=== PATIENT | male | born 2000 | race Caucasian/White ===

== ENCOUNTER 2023-09-25 10:00 | Outpatient (RCR) | payer OTHER, SELFPAY | END 2023-12-24 13:56 | disposition home or self-care (01) | PROVIDERS: Visit Provider Family Medicine | DX: M25.851 Other specified joint disorders, right hip (principal); M62.81 Muscle weakness (generalized); M25.551 Pain in right hip; Z51.89 Encounter for other specified aftercare | CPT/HCPCS: 97110; 97112; 97140; 97161 ==